=== PATIENT | male | born 1995 | race Caucasian/White ===

== ENCOUNTER 2023-01-09 12:25 | Emergency (ER) | payer OTHER ==
[~2023-01-09] VITALS: Ht 170.2 cm; Wt 73.0 kg
[2023-01-09 12:44] VITALS: BP 148/76; PULSE 130; RESP 16; TEMP 98.4; O2SAT 100
== END 2023-01-09 17:18 | disposition left against medical advice (07) ==
LOC: ER 12:25
DX: R42 Dizziness and giddiness (principal); R41.82 Altered mental status, unspecified
CPT/HCPCS: 99281